=== PATIENT | male | born 1945 | race Caucasian/White ===

== ENCOUNTER 2023-10-12 20:37 | Inpatient (IN) | payer OTHER ==
[~2023-10-12] VITALS: Ht 180.3 cm; Wt 55.6 kg
[2023-10-12 21:30] VITALS: BP 110/65; PULSE 88; RESP 18; TEMP 98.1; O2SAT 98
[2023-10-12 22:00] VITALS: BP 110/65; PULSE 88; RESP 18; TEMP 98.1; O2SAT 98
[2023-10-12] MEDS: TAMSULOSIN HCL 0.4 MG CAP PO SCH (22:38)
[2023-10-12 23:00] VITALS: BP 93/64; PULSE 62; RESP 17; TEMP 98.2; O2SAT 100
[2023-10-12 23:10] VITALS: BP 93/64; PULSE 62; RESP 17; TEMP 98.2; O2SAT 100
[2023-10-12] MEDS ORDERED: ONDANSETRON HCL INJ 2MG/ML 2ML 2 MG/ML VIAL IV PRN (23:30)
[2023-10-12] MEDS ORDERED: LIDOCAINE 4% PATCH TP PRN (23:30)
[2023-10-12] MEDS ORDERED: SODIUM CHLORIDE 0.9% 500ML 500 ML IV ONE (23:30)
[2023-10-12] MEDS ORDERED: DIPHENHYDRAMINE HCL 25 MG CAP PO PRN (23:30)
[2023-10-12] MEDS ORDERED: DEXTROSE 50% SYRINGE 50 ML IV PRN (23:30)
[2023-10-12] MEDS ORDERED: HYDROCODONE/APAP 5MG-325MG TAB PO PRN (23:30)
[2023-10-12] MEDS ORDERED: HYDRALAZINE HCL 20 MG/ML VIAL IV PRN (23:30)
[2023-10-12] MEDS ORDERED: BENZONATATE 100 MG CAP PO PRN (23:30)
[2023-10-12] MEDS ORDERED: ALBUTEROL/IPRATROPIUM 3 ML NEB NEB PRN (23:30)
[2023-10-12] MEDS ORDERED: SIMETHICONE 80 MG CHEW PO PRN (23:30)
[2023-10-12] MEDS ORDERED: ACETAMINOPHEN 325 MG TAB PO PRN (23:30)
[2023-10-12] MEDS ORDERED: POTASSIUM CHLORIDE 20 MEQ TAB CR PO PRN (23:30)
[2023-10-12] MEDS ORDERED: DOCUSATE SODIUM 100 MG CAP PO PRN (23:30)
[2023-10-12] MEDS ORDERED: MELATONIN 5 MG TABLET PO PRN (23:30)
[2023-10-13] VITALS (10 sets, daily range): BP systolic 85–150; BP diastolic 48–78; PULSE 69–82; RESP 16–18; TEMP 97.8–98.3; O2SAT 98–100
[2023-10-13] MEDS ORDERED: VITAMIN B-1100 M1 PO (00:49)
[2023-10-13] MEDS ORDERED: DULCOLAX5 MG PO (00:50)
[2023-10-13] MEDS ORDERED: VITAMIN B-121000 MCG PO (00:50)
[2023-10-13] MEDS: DEXTROSE 5%/0.9% SOD CHL 1,000 ML IV SCH ×3 (01:29→16:30)
[2023-10-13 05:20] LABS: BASOPHILS % 0.1 % (0.0-1.0); EOSINOPHILS # (AUTO) 0.2 (0.0-0.4); HEMATOCRIT 22.3 % (38.2-49.6); HEMOGLOBIN 7.3 g/dL (14.0-18.0); LYMPHOCYTES # (AUTO) 0.7 (1.0-3.2); LYMPHOCYTES % 9.8 % (18.0-39.1); MEAN CORPUSCULAR HEMOGLOBIN 32.9 pg (28-32); MEAN CORPUSCULAR HGB CONC 32.7 g/dL (31-35); MEAN CORPUSCULAR VOLUME 100.5 fL (81-99); MONOCYTES # (AUTO) 0.8 (0.2-0.8); MONOCYTES % 10.8 % (4.4-11.3); NEUTROPHILS # (AUTO) 5.5 (2.1-6.9); NEUTROPHILS % 75.6 % (38.7-80.0); PLATELET COUNT 96 x10e3/uL (140-360); RED BLOOD COUNT 2.22 x10e6/uL (4.3-5.7); RED CELL DISTRIBUTION WIDTH 19.1 % (11.7-14.4); WHITE BLOOD COUNT 7.24 x10e3/uL (4.8-10.8)
[2023-10-13 05:52] LABS: ANION GAP 11.5 mmol/L (8-16); CALCIUM 8.1 mg/dL (8.4-10.2); CREATININE, SERUM 0.64 mg/dL (0.72-1.25); POTASSIUM 3.5 mmol/L (3.5-5.1)
[2023-10-13] MEDS ORDERED: MIDODRINE HCL 5 MG TABLET PO ONE ×2 (06:00)
[2023-10-13] MEDS ORDERED: SODIUM CHLORIDE 0.9% IV ONE (08:15)
[2023-10-13] MEDS: TAMSULOSIN HCL 0.4 MG CAP PO SCH ×2 (08:43→16:45)
[2023-10-13] MEDS: PANTOPRAZOLE SOD 40 MG TABEC PO SCH (08:43)
[2023-10-13] MEDS ORDERED: SODIUM CHLORIDE 0.9% 1000ML 1,000 ML IV ONE (08:45)
[2023-10-13 09:02] LABS: BASOPHILS % 0.1 % (0.0-1.0); EOSINOPHILS # (AUTO) 0.2 (0.0-0.4); EOSINOPHILS % 2.4 % (0.0-6.0); HEMATOCRIT 23.3 % (38.2-49.6); HEMOGLOBIN 7.6 g/dL (14.0-18.0); LYMPHOCYTES # (AUTO) 0.7 (1.0-3.2); LYMPHOCYTES % 9.6 % (18.0-39.1); MEAN CORPUSCULAR HEMOGLOBIN 32.9 pg (28-32); MEAN CORPUSCULAR HGB CONC 32.6 g/dL (31-35); MEAN CORPUSCULAR VOLUME 100.9 fL (81-99); MONOCYTES # (AUTO) 0.7 (0.2-0.8); NEUTROPHILS # (AUTO) 5.7 (2.1-6.9); NEUTROPHILS % 78.1 % (38.7-80.0); PLATELET COUNT 98 x10e3/uL (140-360); RED BLOOD COUNT 2.31 x10e6/uL (4.3-5.7); RED CELL DISTRIBUTION WIDTH 19.1 % (11.7-14.4); WHITE BLOOD COUNT 7.36 x10e3/uL (4.8-10.8)
[2023-10-13] MEDS: MIDODRINE HCL 5 MG TABLET PO SCH ×2 (12:38→21:12)
[2023-10-13] MEDS: CEFTRIAXONE 2 GM in SODIUM CHLORIDE 0.9% 100 ML IV SCH (14:41)
[2023-10-13] MEDS: ENOXAPARIN SOD INJ 40 MG/0.4 ML SYR SC SCH (16:45)
[2023-10-13] MEDS ORDERED: ENOXAPARIN SOD INJ 40 MG/0.4 ML SYR SC SCH (17:00)
[2023-10-14] VITALS (8 sets, daily range): BP systolic 91–124; BP diastolic 41–78; PULSE 62–80; RESP 16–18; TEMP 97.5–98.2; O2SAT 96–100
[2023-10-14] MEDS: DEXTROSE 5%/0.9% SOD CHL 1,000 ML IV SCH (01:57)
[2023-10-14] MEDS: MIDODRINE HCL 5 MG TABLET PO SCH ×3 (05:04→22:26)
[2023-10-14] MEDS: PANTOPRAZOLE SOD 40 MG TABEC PO SCH (09:20)
[2023-10-14] MEDS: FOLIC ACID 1 MG TAB PO SCH (09:21)
[2023-10-14] MEDS: TAMSULOSIN HCL 0.4 MG CAP PO SCH ×2 (09:21→17:11)
[2023-10-14] MEDS: CEFTRIAXONE 2 GM in SODIUM CHLORIDE 0.9% 100 ML IV SCH (14:24)
[2023-10-14] MEDS: ENOXAPARIN SOD INJ 40 MG/0.4 ML SYR SC SCH (17:11)
[2023-10-15] VITALS: BP 99/54; PULSE 76; RESP 18; TEMP 97.7; O2SAT 97
[2023-10-15 04:00] VITALS: BP 102/68; PULSE 70; RESP 18; TEMP 98.2; O2SAT 98
[2023-10-15] MEDS: MIDODRINE HCL 5 MG TABLET PO SCH ×2 (06:12→13:32)
[2023-10-15] MEDS: PANTOPRAZOLE SOD 40 MG TABEC PO SCH (08:13)
[2023-10-15] MEDS: FOLIC ACID 1 MG TAB PO SCH (08:13)
[2023-10-15] MEDS: TAMSULOSIN HCL 0.4 MG CAP PO SCH ×2 (08:13→17:04)
[2023-10-15 08:20] VITALS: BP 92/57; PULSE 81; RESP 20; TEMP 98.2; O2SAT 100
[2023-10-15 08:33] VITALS: BP 92/57; PULSE 81; RESP 20; TEMP 98.2; O2SAT 100
[2023-10-15] MEDS ORDERED: ONDANSETRON HCL 4 MG ORAL DISINTEGRATING TAB PO PRN (11:15)
[2023-10-15 11:53] VITALS: BP 97/60; PULSE 82; RESP 16; TEMP 98.2; O2SAT 100
[2023-10-15] MEDS: CEFTRIAXONE 2 GM in SODIUM CHLORIDE 0.9% 100 ML IV SCH (13:33)
[2023-10-15] MEDS ORDERED: FLOMAX0.4 MG PO (15:34)
[2023-10-15] MEDS ORDERED: CEFDINIR300 MG PO (15:34)
[2023-10-15 15:58] VITALS: BP 110/61; PULSE 73; RESP 14; TEMP 98.8; O2SAT 98
[2023-10-15 16:05] LABS: HEMATOCRIT 22.5 % (38.2-49.6); HEMOGLOBIN 7.6 g/dL (14.0-18.0)
[2023-10-15 16:38] LABS: ANION GAP 8.9 mmol/L (8-16); CREATININE, SERUM 0.65 mg/dL (0.72-1.25); POTASSIUM 3.9 mmol/L (3.5-5.1)
[2023-10-15] MEDS: ENOXAPARIN SOD INJ 40 MG/0.4 ML SYR SC SCH (17:00)
== END 2023-10-15 18:19 | disposition home or self-care (01) | DRG 698 ==
LOC: MED/SURG 21:04 → MED/SURG3 10-13 06:45
PROVIDERS: ADMIT Internal Medicine; ATTEND Internal Medicine
DX: N13.9 Obstructive and reflux uropathy, unspecified (principal); U07.1 COVID-19; E44.0 Moderate protein-calorie malnutrition; N13.30 Unspecified hydronephrosis; N12 Tubulo-interstitial nephritis, not specified as acute or chronic; Z68.1 Body mass index [BMI] 19.9 or less, adult; K74.60 Unspecified cirrhosis of liver; Z87.891 Personal history of nicotine dependence; N39.0 Urinary tract infection, site not specified; D69.6 Thrombocytopenia, unspecified; N40.0 Benign prostatic hyperplasia without lower urinary tract symptoms; I95.9 Hypotension, unspecified; D50.9 Iron deficiency anemia, unspecified; Z86.16 Personal history of COVID-19
CPT/HCPCS: 36415; 76770; 80048; 83735; 85014; 85018; 85025; 87040; 87086; 99252; J0696; J1650; J2185; J7030; J7040; J7042; J7050; U0002